=== PATIENT | female | born 1935 | race Caucasian/White ===

== ENCOUNTER 2021-05-29 14:55 | Emergency (ER) | payer OTHER, MEDICARE, BC ==
[2021-05-29 16:09] VITALS: PULSE 86
[2021-05-29 16:10] VITALS: BP 138/82
[2021-05-29] MEDS ORDERED: Diphtheria,Pertussis(Acell),Tetanus Vaccine 0.5 ML Syringe IM ONE (16:24)
== END 2021-05-29 16:55 | disposition home or self-care (01) ==
LOC: CC.ED 14:57
DX: S02.2XXA Fracture of nasal bones, initial encounter for closed fracture (principal); S43.401A Unspecified sprain of right shoulder joint, initial encounter; S00.31XA Abrasion of nose, initial encounter; E03.9 Hypothyroidism, unspecified; Z79.899 Other long term (current) drug therapy; Z23 Encounter for immunization; Z79.82 Long term (current) use of aspirin; W18.09XA Striking against other object with subsequent fall, initial encounter
CPT/HCPCS: 70450; 70486; 72125; 73030-RT; 90471; 90715; 99284; 99284-25

== ENCOUNTER 2023-04-01 11:46 | Day surgery (SDC) | payer MEDICARE, BC ==
[2023-04-01] MEDS ORDERED: Lactated Ringers 1,000 ML IV SCH (12:00)
[2023-04-01] MEDS ORDERED: Flumazenil 0.1 MG/ML 10 ML MDV ONE (12:40)
[2023-04-01] MEDS ORDERED: Lidocaine 0.5% 50 ML SDV ONE (12:40)
[2023-04-01] MEDS ORDERED: Ondansetron 4 MG/2 ML SDV ONE (12:40)
[2023-04-01] MEDS ORDERED: Midazolam 1 MG/ML 2 ML SDV ONE ×2 (12:40)
[2023-04-01] MEDS ORDERED: fentaNYL 50 MCG/ML SDV ONE (12:40)
[2023-04-01] MEDS ORDERED: Lidocaine 1% 30 ML SDV INJECT ONE (13:15)
[2023-04-01 15:10] VITALS: PULSE 69
[2023-04-01 15:11] VITALS: BP 127/65
== END 2023-04-01 14:50 | disposition home or self-care (01) ==
LOC: CC.SDS 11:46
PROVIDERS: ATTEND Surgery
DX: G56.02 Carpal tunnel syndrome, left upper limb (principal); I10 Essential (primary) hypertension; E03.9 Hypothyroidism, unspecified; Z87.891 Personal history of nicotine dependence; Z79.82 Long term (current) use of aspirin; Z79.890 Hormone replacement therapy; Z79.899 Other long term (current) drug therapy
CPT/HCPCS: J2250; J2405; J3010; J3490; J7120